=== PATIENT | male | born 1990 | race Caucasian/White ===

== ENCOUNTER 2019-04-29 18:07 | Emergency (ER) | payer SELFPAY ==
[2019-04-29 18:34] VITALS: BP 119/71; PULSE 99; RESP 19; TEMP 37.2; O2SAT 98
--- NOTE | 2019-04-29 19:33 | ED.URI ---
HPI - URI/Sore Throat General Chief Complaint: Upper Respiratory Infection Stated Complaint: SORE THROAT Time Seen by Provider: 04/29/19 19:33 Source: patient Mode of arrival: ambulatory Limitations: no limitations History of Present Illness HPI Narrative: A 28 y/o male presents to the ED with c/o a sore throat for 1 week. Pt has a PMHx of tonsillitis and states that his throat swells shut 3-4 times a year. Pt was seen at [facility] last year for the same complaints and was told that he had an abscess where the left side of his tongue meets the tonsil. Pt got a referral to see an ENT but his insurance would not cover this so he did not make an appointment. He reports an earache, sinus congestion, and smoking 1 PPD, but denies a fever, ABD pain, and a rash. Onset (ago): week(s) (1) Related Data Allergies Allergy/AdvReac Type Severity Reaction Status Date / Time codeine Allergy Mild Nausea Verified 04/29/19 19:28 Review of Systems Review of Systems: Narrative: CONSTITUTIONAL: Denies fever, chills, or sweats. ENT: Reports: sore throat, earache, sinus congestion; Denies rhinorrhea GASTROINTESTINAL: Denies abdominal pain, nausea, vomiting, or diarrhea. SKIN: Denies rash or itching. All systems reviewed & are unremarkable except as noted in HPI and below PMFSH Past Medical History Medical History (Updated 04/29/19 @ 19:46 by Simran Jj MD) ADHD Bipolar disorder Depression Ear infection Finger fracture Hx of tonsillitis Surgical History Surgical History (Updated 04/29/19 @ 19:43 by Tara Rodriguez) H/O removal of cyst left eye History of appendectomy Social History Social History (Updated 04/29/19 @ 19:44 by Tara Rodriguez) Smoking packs per day: 1 Smoking cigarettes per day: 20.0 Smoking status: Current every day smoker Gender identity (if verbalized by the patient): Male Comments No PCP on file. Exam Narrative: Exam Narrative: GENERAL: Well-appearing, well-nourished, and in no acute distress. HEAD: Normocephalic, atraumatic. EYES: PERRLA and EOMI. ENT: Nares clear, no rhinorrhea or epistaxis. Mucous membranes moist. Oropharynx with erythema, tonsillar edema, no abscess or exudate. Uvula is midline. No trismus. Erythema, Effusion left ear. NECK: Supple. No cervical lymphadenopathy. CHEST: Clear to auscultation. No respiratory distress. HEART: Regular rate and rhythm. No murmur heard. Normal peripheral pulses. ABDOMEN: Soft, nontender, nondistended, normal active bowel sounds. EXTREMITIES: Normal range of motion. No edema. SKIN: Warm, dry, no rash. NEURO: No focal deficits. Alert and oriented Course Vital Signs Vital signs: Vital Signs Temperature 37.2 C 04/29/19 18:34 Pulse Rate 99 04/29/19 18:34 Respiratory Rate 19 04/29/19 18:34 Blood Pressure 119/71 04/29/19 18:34 Pulse Oximetry 98 04/29/19 18:34 Temperature 37.2 C 04/29/19 18:34 Pulse Rate 99 04/29/19 18:34 Respiratory Rate 04/29/19 18:34 Blood Pressure 119/71 04/29/19 18:34 Pulse Oximetry 98 04/29/19 18:34 MDM - URI/Sore Throat MDM Narrative Medical decision making narrative: Patient presenting for evaluation of sore throat, ear pain, history of recurrent tonsillitis/pharyngitis, but has not been seen by an ENT due to financial constraints. On exam, ABCs are intact, vital signs are stable. Patient with erythema of the posterior oropharynx without lesions, no exudate. There is tonsillar edema. No trismus. No cervical lymphadenopathy. Patient with left otitis media with erythema and effusion present. Will treat with antibiotics and give Decadron for patient's tonsillitis as well. Patient with negative strep screen, consistent with pharyngitis that is likely viral. Differential Diagnosis Differential diagnosis: Likely upper respiratory infection, otitis media, sinusitis and pharyngitis Lab Data Labs: Strep Screen Presumptive Negative *(Reference Range: Negativ
== END 2019-04-29 20:17 | disposition home or self-care (01) ==
PROVIDERS: Emergency Provider Emergency Medicine
DX: J06.9 Acute upper respiratory infection, unspecified (principal); H65.02 Acute serous otitis media, left ear; J02.9 Acute pharyngitis, unspecified; F17.210 Nicotine dependence, cigarettes, uncomplicated
CPT/HCPCS: 87081; 87880; 99283; J1100